=== PATIENT | female | born 1960 | race Caucasian/White ===

== ENCOUNTER → 2018-09-15 | Outpatient (CLI) | payer BC ==
[~2018-09-15] MED LIST: CALC500T6 PO; CRAN200C5 PO; ECHI80CA2 PO; MULT1CAP59 PO; OMEG10007 PO; ROSU20TA23 PO
--- NOTE | 2018-09-24 15:13 | RADIOLOGY IMAGING REPORT ---
FACILITY: [facility] PATIENT NAME: CHARBEL CRISTINA : [id number] MR: [id number] V: [id number] EXAM DATE: [id number] ORDERING PHYSICIAN: BETSY GLASGOW TECHNOLOGIST: Cristiana Vital PROCEDURE:BILATERAL DIGITAL SCREENING MAMMOGRAM WITH CAD ASSISTED INTERPRETATION & 3D TOMOSYNTHESIS COMPARISON:Priors INDICATIONS:screening FINDINGS: The breasts are heterogeneously dense. Benign appearing asymmetries are scattered bilaterally, essentially unchanged. DIAGNOSTIC CATEGORY 1--NEGATIVE. RECOMMENDATIONS: ROUTINE MAMMOGRAM AND CLINICAL EVALUATION IN 1 YR. IMPRESSION: BIRADS 1: Negative. Dictated by: Dung Cox M.D. on 09/16/2018 at 9:09 Transcribed by: ZULMA on 09/16/2018 at 9:31 Approved by: Americo Le on 09/24/2018 at 15:12 [facility]
== END ==
LOC: MAMO 00:56
PROVIDERS: ATTEND Nurse Practitioner Family
DX: Z12.31 Encounter for screening mammogram for malignant neoplasm of breast (principal)
CPT/HCPCS: 77063; 77067